=== PATIENT | male | born 1985 | race Caucasian/White ===

== ENCOUNTER 2025-08-14 13:55 | Emergency (ER) | payer OTHER ==
[~2025-08-14] VITALS: Ht 170.2 cm; Wt 112.5 kg
[~2025-08-14 13:55] MED LIST: CEPH500 PO; CITA20 PO; CYCL10 PO; ETOD200 PO; HYDACE5 PO; HYDACE5325 PO; IBUP800 PO; MELO7.5 PO; OMEP40CA12 PO; OXYACE5T PO; OXYC5 PO; PROM25 PO; Percocet 5-3251 EACH PO; SIMV10 PO; TOPI50 PO
[2025-08-14 14:23] LABS: BASOPHILS ABSOLUTE AUTO 0.02 K/mm3 (0.00-0.23); BASOPHILS PERCENT AUTO 0 % (0-2); EOSINOPHILS ABSOLUTE AUTO 0.16 K/mm3 (0.00-0.68); EOSINOPHILS PERCENT AUTO 2 % (0-6); Hematocrit 46.3 % (37.0-53.0); Hemoglobin 16.0 g/dL (13.5-17.5); IMMATURE GRAN ABSOLUTE AUTO 0.02 K/mm3 (0.00-0.10); IMMATURE GRAN PERCENT AUTO 0 % (0-1); LYMPHOCYTES ABSOLUTE AUTO 2.71 K/mm3 (0.84-5.20); LYMPHOCYTES PERCENT AUTO 34 % (21-46); MONOCYTES ABSOLUTE AUTO 0.48 K/mm3 (0.16-1.47); MONOCYTES PERCENT AUTO 6 % (4-13); Mean Corpuscular HGB Conc 34.6 g/dL (31.5-36.5); Mean Corpuscular Volume 91 fL (80-100); NEUTROPHILS ABSOLUTE AUTO 4.65 K/mm3 (1.96-9.15); NEUTROPHILS PERCENT AUTO 58 % (41-73); NRBC ABSOLUTE 0.00 K/mm3 (0.00-0.02); NRBC Auto 0.0 /100 WBC (0.0-0.2); Platelet Count 360 K/mm3 (150-400); RDW Coefficient Variation 12.5 % (11.7-14.2); RDW Standard Deviation 41.5 fL (35.1-46.3)
[2025-08-14] MEDS ORDERED: ATOR20 PO (14:30)
[2025-08-14] MEDS ORDERED: ZESTORETIC 20-1 EACH PO (14:30)
[2025-08-14] MEDS ORDERED: OMEP20ER PO (14:31)
[2025-08-14] MEDS ORDERED: BUTRANS BC (14:31)
[2025-08-14 14:39] LABS: Alanine Aminotransfer (ALT/SGP 96.0 U/L (12-78); Albumin, Blood 4.3 g/dL (3.4-5.0); Albumin/Globulin Ratio 1.1 (0.8-1.8); Anion Gap 11.0 mmol/L (3-11); Aspartate Aminotrans (AST/SGOT 48.0 U/L (12-37); Bilirubin, Total 0.5 mg/dL (0.1-1.0); Blood Urea Nitrogen 10.0 mg/dL (8-24); CO2, Blood 24.0 mmol/L (21-32); Calcium, Blood 9.2 mg/dL (8.5-10.1); Chloride, Blood 107.0 mmol/L (98-108); Creatinine, Blood 0.91 mg/dL (0.60-1.20); Globulin, Blood 3.8 g/dL (2.2-4.0); Glucose, Blood 106.0 mg/dL (70-99); Potassium, Blood 3.8 mmol/L (3.5-5.5); Sodium, Blood 138.0 mmol/L (136-145); Total Protein, Blood 8.1 g/dL (6.4-8.2)
[2025-08-14] MEDS ORDERED: Ketorolac Tromethamine 15mg Vial IV ONE (16:45)
[2025-08-14] MEDS ORDERED: LORazepam 2 MG/ML 1ML Injection IV ONE (16:45)
[2025-08-14 17:30] VITALS: BP 140/74
[2025-08-14] MEDS ORDERED: IBUP800 PO (18:02)
[2025-08-14] MEDS ORDERED: LORA.5 PO ×2 (18:02→18:03)
== END 2025-08-14 18:24 | disposition home or self-care (01) ==
LOC: ER 13:55
PROVIDERS: Student in an Organized Health Care Education/Training Program
DX: R00.2 Palpitations (principal); R73.9 Hyperglycemia, unspecified; R74.01 Elevation of levels of liver transaminase levels; Z87.891 Personal history of nicotine dependence; Z79.899 Other long term (current) drug therapy
CPT/HCPCS: 71046; 80053; 84484; 85025; 93005; 93010; 96374; 96375; 99285-25; J1885; J2060